=== PATIENT | female | born 1950 | race Caucasian/White ===

== ENCOUNTER 2017-08-19 17:01 | Emergency (ER) | payer MEDICARE, OTHER ==
[~2017-08-19] VITALS: Ht 170.2 cm; Wt 68.0 kg
== END 2017-08-19 18:35 | disposition home or self-care (01) ==
LOC: ER 17:01
DX: H53.9 Unspecified visual disturbance (principal); Z88.5 Allergy status to narcotic agent; Z87.891 Personal history of nicotine dependence
CPT/HCPCS: 99282

== ENCOUNTER → 2018-01-04 | Outpatient (CLI) | payer MEDICARE, OTHER ==
[2018-01-04 18:07] LABS: Source, Urine Clean Catch
[2018-01-04 18:56] LABS: Red Blood Cells, Urine Not Seen /hpf (0-2); White Blood Cells, Urine Rare /hpf (0-5)
[2018-01-04 18:57] LABS: Bacteria Not Seen /hpf; Squamous Epithelial Cells Few /hpf (Few); Transitional Epithelial Cells Few /hpf (0-Rare)
== END | disposition home or self-care (01) ==
LOC: LAB SHORT 12:15 → LAB EV 12:15
PROVIDERS: Internal Medicine
DX: R31.0 Gross hematuria (principal)
CPT/HCPCS: 81015

== ENCOUNTER → 2020-03-02 | Outpatient (CLI) | payer MEDICARE, OTHER ==
[~2020-03-02] MED LIST: ALPR.5; DULO30 PO
== END | disposition home or self-care (01) ==
LOC: LAB SHORT 11:54 → PLD 11:54
DX: D22.5 Melanocytic nevi of trunk (principal); D22.72 Melanocytic nevi of left lower limb, including hip
CPT/HCPCS: 88305

== ENCOUNTER → 2020-03-16 | Outpatient (CLI) | payer MEDICARE, OTHER | END | disposition home or self-care (01) | LOC: LAB SHORT 14:26 → PLD 14:26 | DX: L72.0 Epidermal cyst (principal) | CPT/HCPCS: 88304 ==

== ENCOUNTER 2020-03-20 11:55 | Day surgery (SDC) | payer MEDICARE, OTHER ==
[~2020-03-20] VITALS: Ht 170.2 cm; Wt 66.7 kg
== END 2020-03-20 13:53 | disposition home or self-care (01) ==
LOC: ORSCSDS 11:55
PROVIDERS: Internal Medicine Gastroenterology
PROC: 0DJD8ZZ Inspection of Lower Intestinal Tract, Via Natural or Artificial Opening Endoscopic (ICD-10-PCS; principal; 2020-03-20 13:15)
DX: Z12.11 Encounter for screening for malignant neoplasm of colon (principal); K57.30 Diverticulosis of large intestine without perforation or abscess without bleeding; K64.8 Other hemorrhoids
CPT/HCPCS: J2704; J7120

== ENCOUNTER → 2021-09-14 | Outpatient (CLI) | payer MEDICARE, OTHER ==
[2021-09-14 10:32] LABS: BASOPHILS ABSOLUTE AUTO 0.03 K/mm3 (0.00-0.23); BASOPHILS PERCENT AUTO 1 % (0-2); EOSINOPHILS PERCENT AUTO 0 % (0-6); Hematocrit 44.3 % (33.0-51.0); Hemoglobin 14.5 g/dL (11.5-16.0); IMMATURE GRAN ABSOLUTE AUTO 0.01 K/mm3 (0.00-0.10); IMMATURE GRAN PERCENT AUTO 0 % (0-1); LYMPHOCYTES ABSOLUTE AUTO 1.94 K/mm3 (0.84-5.20); LYMPHOCYTES PERCENT AUTO 40 % (21-46); MONOCYTES PERCENT AUTO 8 % (4-13); Mean Corpuscular HGB 30.2 pg (26.0-34.0); Mean Corpuscular HGB Conc 32.7 g/dL (31.5-36.5); Mean Corpuscular Volume 92 fL (80-100); Mean Platelet Volume 9.8 fL (9.1-12.4); NEUTROPHILS ABSOLUTE AUTO 2.44 K/mm3 (1.96-9.15); NEUTROPHILS PERCENT AUTO 51 % (41-73); Platelet Count 200 K/mm3 (150-400); RDW Coefficient Variation 12.4 % (11.7-14.2); RDW Standard Deviation 42.3 fL (35.1-46.3); White Blood Cell Count 4.82 K/mm3 (4.00-11.30)
[2021-09-14 11:07] LABS: Alanine Aminotransfer (ALT/SGP 47 U/L (12-78); Albumin/Globulin Ratio 1.4 (0.8-1.8); Alk Phos 84 U/L (50-136); Anion Gap 5 mmol/L (6-16); Aspartate Aminotrans (AST/SGOT 20 U/L (12-37); Bilirubin, Total 0.6 mg/dL (0.1-1.0); Blood Urea Nitrogen 29 mg/dL (8-24); CHOL/HDL RATIO 2.4; CO2, Blood 29 mmol/L (21-32); Calcium, Blood 8.7 mg/dL (8.5-10.1); Chloride, Blood 107 mmol/L (98-108); Cholesterol 134 mg/dL (50-200); Creatinine, Blood 0.78 mg/dL (0.40-1.00); Globulin, Blood 2.9 g/dL (2.2-4.0); Glomerular Filtration Rate 81 (60-); Glucose, Blood 105 mg/dL (70-99); HDL Cholesterol 57 mg/dL (>39); LDL/HDL RATIO 1.1; Low Density Lipoprotein Chol 64 mg/dL (0-110); Potassium, Blood 4.3 mmol/L (3.5-5.5); Sodium, Blood 141 mmol/L (136-145); Total Protein, Blood 6.9 g/dL (6.4-8.2); Triglycerides 63 mg/dL (30-160); Very Low Density Lipoprot Chol 13 mg/dL (6-32)
== END ==
LOC: LAB SHORT 09:30
PROVIDERS: Internal Medicine
DX: E78.2 Mixed hyperlipidemia (principal)
CPT/HCPCS: 80053; 80061; 85025

== ENCOUNTER 2024-03-13 21:27 | Emergency (ER) | payer MEDICARE ==
[~2024-03-13] VITALS: Ht 172.7 cm; Wt 68.0 kg
[~2024-03-13 21:27] MED LIST changes: +ALBU2.5V5 INH; +Acetaminophen650 M1 PO; +BENZ100A PO; +BREZTRI AEROS10.7 GM INH; +HYDHCL25 PO; +MELATONIN5 M1 PO; +ROBITUSSIN HON237 ML PO; +XARELTO15 MG PO; +XARELTO20 MG PO
[2024-03-13 21:53] VITALS: BP 145/71
[2024-03-14 00:12] LABS: BASOPHILS ABSOLUTE AUTO 0.02 K/mm3 (0.00-0.23); BASOPHILS PERCENT AUTO 0 % (0-2); EOSINOPHILS PERCENT AUTO 0 % (0-6); Hematocrit 29.6 % (33.0-51.0); Hemoglobin 9.5 g/dL (11.5-16.0); IMMATURE GRAN PERCENT AUTO 0 % (0-1); LYMPHOCYTES ABSOLUTE AUTO 1.12 K/mm3 (0.84-5.20); LYMPHOCYTES PERCENT AUTO 25 % (21-46); MONOCYTES ABSOLUTE AUTO 0.79 K/mm3 (0.16-1.47); MONOCYTES PERCENT AUTO 17 % (4-13); Mean Corpuscular HGB Conc 32.1 g/dL (31.5-36.5); Mean Corpuscular Volume 100 fL (80-100); Mean Platelet Volume 8.7 fL (9.1-12.4); NEUTROPHILS ABSOLUTE AUTO 2.64 K/mm3 (1.96-9.15); NEUTROPHILS PERCENT AUTO 58 % (41-73); Platelet Count 205 K/mm3 (150-400); RDW Coefficient Variation 14.2 % (11.7-14.2); RDW Standard Deviation 50.6 fL (35.1-46.3); Red Blood Cell Count 2.97 M/mm3 (3.80-5.20); White Blood Cell Count 4.57 K/mm3 (4.00-11.30)
[2024-03-14 00:30] LABS: Albumin, Blood 3.3 g/dL (3.4-5.0); Albumin/Globulin Ratio 0.9 (0.8-1.8); Bilirubin, Total 0.2 mg/dL (0.1-1.0); Bun/Creatinine Ratio 22.1 (12.0-20.0); Calcium, Blood 8.8 mg/dL (8.5-10.1); Creatinine, Blood 0.86 mg/dL (0.40-1.00); Globulin, Blood 3.8 g/dL (2.2-4.0); Potassium, Blood 3.8 mmol/L (3.5-5.5); Total Protein, Blood 7.1 g/dL (6.4-8.2)
[2024-03-14] MEDS ORDERED: Tobramycin 0.3% Opth Soln 5 ML BOTHEYES ONE (00:45)
[2024-03-14] MEDS ORDERED: Tobrex5 ML BOTHEYES (01:02)
[2024-03-14] MEDS ORDERED: Diflucan100 MG PO (01:02)
== END 2024-03-14 01:24 | disposition home or self-care (01) ==
LOC: ER 21:27
PROVIDERS: Emergency Medicine
DX: H10.9 Unspecified conjunctivitis (principal); Z79.899 Other long term (current) drug therapy; Z79.51 Long term (current) use of inhaled steroids; Z88.5 Allergy status to narcotic agent; Z88.8 Allergy status to other drugs, medicaments and biological substances
CPT/HCPCS: 80053; 85025; 99283; A9270

== ENCOUNTER 2024-06-25 12:02 | Emergency (ER) | payer MEDICARE ==
[~2024-06-25] VITALS: Ht 172.7 cm; Wt 68.0 kg
[~2024-06-25 12:02] MED LIST changes: +Diflucan100 MG PO; +Tobrex5 ML BOTHEYES
[2024-06-25 12:21] VITALS: BP 134/73
[2024-06-25 13:25] LABS: BASOPHILS ABSOLUTE AUTO 0.02 K/mm3 (0.00-0.23); BASOPHILS PERCENT AUTO 0 % (0-2); EOSINOPHILS ABSOLUTE AUTO 0.13 K/mm3 (0.00-0.68); EOSINOPHILS PERCENT AUTO 2 % (0-6); Hematocrit 31.4 % (33.0-51.0); Hemoglobin 9.9 g/dL (11.5-16.0); IMMATURE GRAN ABSOLUTE AUTO 0.02 K/mm3 (0.00-0.10); IMMATURE GRAN PERCENT AUTO 0 % (0-1); LYMPHOCYTES ABSOLUTE AUTO 1.11 K/mm3 (0.84-5.20); LYMPHOCYTES PERCENT AUTO 20 % (21-46); MONOCYTES PERCENT AUTO 9 % (4-13); Mean Corpuscular HGB 27.9 pg (26.0-34.0); Mean Corpuscular HGB Conc 31.5 g/dL (31.5-36.5); Mean Corpuscular Volume 89 fL (80-100); Mean Platelet Volume 8.3 fL (9.1-12.4); NEUTROPHILS ABSOLUTE AUTO 3.86 K/mm3 (1.96-9.15); NEUTROPHILS PERCENT AUTO 68 % (41-73); Platelet Count 317 K/mm3 (150-400); RDW Coefficient Variation 14.1 % (11.7-14.2); RDW Standard Deviation 45.8 fL (35.1-46.3); Red Blood Cell Count 3.55 M/mm3 (3.80-5.20); White Blood Cell Count 5.64 K/mm3 (4.00-11.30)
[2024-06-25 13:45] LABS: International Normalized Ratio 1.14; Prothrombin Time Results 12.1 Sec (9.7-11.5)
[2024-06-25 13:58] LABS: Albumin/Globulin Ratio 0.8 (0.8-1.8); Bilirubin, Total 0.4 mg/dL (0.1-1.0); Bun/Creatinine Ratio 16.4 (12.0-20.0); Calcium, Blood 8.2 mg/dL (8.5-10.1); Creatinine, Blood 0.79 mg/dL (0.40-1.00); Potassium, Blood 3.8 mmol/L (3.5-5.5)
== END 2024-06-25 12:58 | disposition home or self-care (01) ==
LOC: ER 12:02
PROVIDERS: Physician Assistant
DX: J90 Pleural effusion, not elsewhere classified (principal); Z88.5 Allergy status to narcotic agent; Z79.899 Other long term (current) drug therapy; Z79.2 Long term (current) use of antibiotics; Z79.01 Long term (current) use of anticoagulants; Z59.89 Other problems related to housing and economic circumstances
CPT/HCPCS: 36415; 80053; 85025; 85610; 85730; 99284

== ENCOUNTER 2024-07-05 09:06 | Day surgery (SDC) | payer MEDICARE ==
[2024-07-05] VITALS (12 sets, daily range): BP systolic 95–117; BP diastolic 49–79
[~2024-07-05] VITALS: Ht 172.7 cm; Wt 68.9 kg
[~2024-07-05 09:06] MED LIST changes: +ALPR.25; +ASCO500 PO; +Ativan1 MG; +B-12500 MC2 PO; +CALCIUM CIT 311 EAC7 PO; +DECADRON4 M1; +FERSU300 PO; +FLUC200 PO; +FOLI1 PO; +LEVO750 PO; +MULVITA PO; +NITR.4SL SL; +OLAN2.5 PO; +ONDA4ODT MM; +PYRI100 PO; +TAGRISSO40 MG PO; +VITAMIN D5000 UNIT PO; +ZINC15 PO; +[UNRECOGNIZED DRUG - OTHER] PO
[2024-07-05] MEDS ORDERED: Lactated Ringer's 1,000 ML IV SCH (09:10)
--- NOTE | 2024-07-05 09:25 | NUR ---
LUNGS CLEAR TO AUSCULTATION, POSTERIOR RIGHT LOWER BASE DIMINISHED. PATIENT REPORTS SOB WITH ANY ACTIVITY. NO VISIBLE RESPIRATORY DISTRESS.
[2024-07-05] MEDS ORDERED: CeFAZolin Sodium 2,000 MG in NS 100 ML IV SCH (09:55)
--- NOTE | 2024-07-05 10:07 | NUR ---
ALMA ROSA LYNN, FROM PALLIATIVE CARE, HERE AT BEDSIDE PROVIDING EDUCATION ON PLEURX CATHETER SUPPLIES.
[2024-07-05] MEDS ORDERED: CeFAZolin Sodium 2,000 MG VIAL ONE (10:12)
--- NOTE | 2024-07-05 10:45 | NUR ---
EDUCATED PT ON HOW TO USE PLEURX SYSTEM. PT WAS ABLE TO VERBALLY REPEAT BACK STEPS WELL. PT STATED SHE HAS VIEWED VIDEO PRIOR TO COMING IN TODAY. PT STATES HER SISTER IS A RN AND WILL BE ASSISTING HER WITH PROCEDURE AT HOME. PT SENT HOME WITH A PLEURX HOME SYSTEM. CHARGE SHEET PLACED IN CHART.
[2024-07-05] MEDS ORDERED: FentaNYL Citrate 50 MCG/ML 2 ML Injection ONE (11:13)
[2024-07-05] MEDS ORDERED: propofoL 20 ML IV ONE (11:13)
[2024-07-05] MEDS ORDERED: Dexamethasone Sod Phos 10 MG/ML 1ML VIAL ONE (11:17)
[2024-07-05] MEDS ORDERED: Ondansetron HCl 2 MG / ML 2ML Vial ONE (11:17)
[2024-07-05] MEDS ORDERED: Bupivacaine 0.5% HCl 5 MG/ML 30MLVIAL ONE (11:20)
--- NOTE | 2024-07-05 12:07 | NUR ---
07/05/24 1207 Sofiya Miranda 10ML OF 1% LIDOCAINE FROM PLEUR-X DRAIN KIT INJECTED INTO OPERATIVE SITE.
[2024-07-05] MEDS ORDERED: Albuterol 2.5 MG/3 ML VIAL ONE (12:21)
[2024-07-05] MEDS ORDERED: Acetaminophen 500 MG Tab PO ONE (13:30)
== END 2024-07-05 23:00 | disposition home or self-care (01) ==
LOC: ORSCMMR 09:06 → ORD 09:30 → ORSCMMR 10:30
PROVIDERS: Surgery
PROC: 0W993ZZ Drainage of Right Pleural Cavity, Percutaneous Approach (ICD-10-PCS; principal; 2024-07-05 10:30)
DX: C34.11 Malignant neoplasm of upper lobe, right bronchus or lung (principal); J91.0 Malignant pleural effusion; G47.33 Obstructive sleep apnea (adult) (pediatric); Z86.711 Personal history of pulmonary embolism; Z79.01 Long term (current) use of anticoagulants
CPT/HCPCS: 71045; A9270; C1729; J0690; J1100; J2405; J2704; J3010; J7120

== ENCOUNTER 2024-07-18 19:48 | Observation (INO) | payer MEDICARE ==
[~2024-07-18] VITALS: Ht 172.7 cm; Wt 66.7 kg
[~2024-07-18 19:48] MED LIST changes: -ZINC15 PO; +[UNRECOGNIZED DRUG - OTHER] PO
[2024-07-18 20:50] LABS: BASOPHILS ABSOLUTE AUTO 0.03 K/mm3 (0.00-0.23); BASOPHILS PERCENT AUTO 0 % (0-2); EOSINOPHILS PERCENT AUTO 0 % (0-6); Hematocrit 34.5 % (33.0-51.0); Hemoglobin 10.6 g/dL (11.5-16.0); IMMATURE GRAN ABSOLUTE AUTO 0.03 K/mm3 (0.00-0.10); IMMATURE GRAN PERCENT AUTO 0 % (0-1); LYMPHOCYTES ABSOLUTE AUTO 1.43 K/mm3 (0.84-5.20); LYMPHOCYTES PERCENT AUTO 14 % (21-46); MONOCYTES ABSOLUTE AUTO 0.75 K/mm3 (0.16-1.47); MONOCYTES PERCENT AUTO 7 % (4-13); Mean Corpuscular HGB 26.1 pg (26.0-34.0); Mean Corpuscular HGB Conc 30.7 g/dL (31.5-36.5); Mean Corpuscular Volume 85 fL (80-100); NEUTROPHILS ABSOLUTE AUTO 7.95 K/mm3 (1.96-9.15); NEUTROPHILS PERCENT AUTO 78 % (41-73); Platelet Count 438 K/mm3 (150-400); RDW Coefficient Variation 15.3 % (11.7-14.2); RDW Standard Deviation 47.3 fL (35.1-46.3); Red Blood Cell Count 4.06 M/mm3 (3.80-5.20); White Blood Cell Count 10.19 K/mm3 (4.00-11.30)
[2024-07-18] MEDS ORDERED: Morphine Sulfate 4 MG/1 ML Injection IV ONE (20:55)
[2024-07-18 21:02] LABS: Albumin, Blood 2.4 g/dL (3.4-5.0); Albumin/Globulin Ratio 0.5 (0.8-1.8); Bilirubin, Total 0.4 mg/dL (0.1-1.0); Bun/Creatinine Ratio 26.3 (12.0-20.0); Calcium, Blood 8.2 mg/dL (8.5-10.1); Creatinine, Blood 0.8 mg/dL (0.40-1.00); Globulin, Blood 4.6 g/dL (2.2-4.0); Potassium, Blood 4.6 mmol/L (3.5-5.5)
[2024-07-18 21:27] LABS: International Normalized Ratio 1.23
[2024-07-19] MEDS ORDERED: Morphine Sulfate 4 MG/1 ML Injection IV ONE (00:25)
[2024-07-19] MEDS ORDERED: NS 1,000 ML IV SCH (01:35)
[2024-07-19] MEDS ORDERED: Ondansetron HCl 2 MG / ML 2ML Vial IV PRN (01:35)
[2024-07-19] MEDS ORDERED: Atorvastatin 40 MG Tab PO SCH (02:00)
[2024-07-19] MEDS ORDERED: Aspirin 81 MG Chew PO SCH (02:00)
[2024-07-19 02:36] VITALS: BP 117/59
[2024-07-19 03:28] LABS: BASOPHILS ABSOLUTE AUTO 0.02 K/mm3 (0.00-0.23); BASOPHILS PERCENT AUTO 0 % (0-2); EOSINOPHILS PERCENT AUTO 0 % (0-6); Hematocrit 26.7 % (33.0-51.0); Hemoglobin 8.2 g/dL (11.5-16.0); IMMATURE GRAN ABSOLUTE AUTO 0.04 K/mm3 (0.00-0.10); IMMATURE GRAN PERCENT AUTO 1 % (0-1); LYMPHOCYTES ABSOLUTE AUTO 1.27 K/mm3 (0.84-5.20); LYMPHOCYTES PERCENT AUTO 15 % (21-46); MONOCYTES ABSOLUTE AUTO 0.81 K/mm3 (0.16-1.47); MONOCYTES PERCENT AUTO 9 % (4-13); Mean Corpuscular HGB 26.1 pg (26.0-34.0); Mean Corpuscular HGB Conc 30.7 g/dL (31.5-36.5); Mean Corpuscular Volume 85 fL (80-100); Mean Platelet Volume 8.2 fL (9.1-12.4); NEUTROPHILS ABSOLUTE AUTO 6.55 K/mm3 (1.96-9.15); NEUTROPHILS PERCENT AUTO 75 % (41-73); Platelet Count 314 K/mm3 (150-400); RDW Coefficient Variation 15.3 % (11.7-14.2); RDW Standard Deviation 46.8 fL (35.1-46.3); Red Blood Cell Count 3.14 M/mm3 (3.80-5.20); White Blood Cell Count 8.69 K/mm3 (4.00-11.30)
[2024-07-19 03:48] LABS: Albumin, Blood 1.9 g/dL (3.4-5.0); Albumin/Globulin Ratio 0.5 (0.8-1.8); Bilirubin, Total 0.2 mg/dL (0.1-1.0); Bun/Creatinine Ratio 24.4 (12.0-20.0); Calcium, Blood 7.2 mg/dL (8.5-10.1); Creatinine, Blood 0.74 mg/dL (0.40-1.00); Globulin, Blood 3.5 g/dL (2.2-4.0); Total Protein, Blood 5.4 g/dL (6.4-8.2)
[2024-07-19 05:06] LABS: Source, Urine Clean Catch
[2024-07-19 05:11] LABS: Bilirubin, Urine Neg (Neg); Blood, Urine 1+ (Neg); Glucose Qualitative, Urine Neg (Neg); Ketones, Urine Neg (Neg); Leukocyte Esterase, Urine 2+ (Neg); Nitrite, Urine Neg (Neg); Protein, Urine 1+ (Neg); Urobilinogen, Urine NORM (Normal)
[2024-07-19 05:20] LABS: Appearance, Urine Clear (Clear); Color, Urine Yellow (P-Yellow)
[2024-07-19 05:29] LABS: U Amphetamine Screen Not Detected; U Barbituate Screen Not Detected; U Benzodiazapine Screen Not Detected; U Buprenorphine Screen Not Detected; U Cannabinoids Screen Not Detected; U Cocaine Screen Not Detected; U Methadone Screen Not Detected; U Methamphetamine Screen Not Detected; U Opiates Screen DETECTED; U Oxycodone Screen Not Detected; U Phencyclidine Screen Not Detected
[2024-07-19 05:30] LABS: Bacteria Mod /hpf; Red Blood Cells, Urine 0-2 /hpf (0-2); Squamous Epithelial Cells Mod /hpf (Few)
[2024-07-19] MEDS ORDERED: FentaNYL Citrate 50 MCG/ML 2 ML Injection IV PRN (06:05)
[2024-07-19 07:38] VITALS: BP 119/61
[2024-07-19] MEDS ORDERED: Cyanocobalamin 500 MCG Tab PO SCH (09:00)
[2024-07-19] MEDS ORDERED: ZINC SULFATE PO SCH (09:00)
[2024-07-19] MEDS ORDERED: Rivaroxaban 10 MG Tab PO SCH (09:00)
[2024-07-19] MEDS ORDERED: Docosahexanoic Acid/EPA 1,000 MG CAP PO SCH (09:00)
[2024-07-19] MEDS ORDERED: Calcium Citrate 315 MG/Vitamin D 250 IU Tab PO SCH (09:00)
[2024-07-19] MEDS ORDERED: Ferrous Gluconate 325 MG Tablet PO SCH (09:00)
[2024-07-19] MEDS ORDERED: Cholecalciferol 1000 Unit Tablet (=25MCG) PO SCH (09:00)
[2024-07-19] MEDS ORDERED: Multivitamins 1 Tab PO SCH (09:00)
[2024-07-19] MEDS ORDERED: OSIMERTINIB PO SCH (09:00)
[2024-07-19] MEDS ORDERED: PyridOXINE HCL 50 MG TAB PO SCH (09:00)
[2024-07-19 12:20] VITALS: BP 112/63
[2024-07-19] MEDS ORDERED: Amoxicillin/Clavulanate K 500 MG Tab PO ONE (13:00)
[2024-07-19] MEDS ORDERED: ASPI81CH PO (13:29)
[2024-07-19] MEDS ORDERED: AMOCLA500 PO (13:30)
[2024-07-19] MEDS ORDERED: ATOR40TA PO (13:30)
--- NOTE | 2024-07-19 14:48 | NUR ---
DISCHARGE NOTE PATIENT A/OX4, ABLE TO MAKE NEEDS KNOWN. PLEASANT AND COOPERATIVE WITH CARE. STAND BY ASSIST WITH AMBULATION. DENIED NEED FOR PAIN MEDICATIONS THIS SHIFT. HOME OXYGEN STUDY COMPLETED BY RESPIRATOPRY THERAPY, NO OXYGEN NEEDS. PATIENT CONINTUES WITH DYSPNEA WITH EXERTION AND PAINFUL DRY COUGH. IV DRESSING CHANGED THIS AM, IV REMOVED PRIOR TO DISCHARGE. FOLLOW UP APPOINTMENTS AND NEW MEDICATIONS DISCUSSED WITH PATIENT PRIOR TO DISCHARGE AND FAXED TO [facility] ON [address]. PATIENT AND SISTER AT BEDSIDE DURING EDUCATION AND BOTH AGREEABLE TO PLAN. TELEMETRY REMOVED PRIOR TO DISCHARGE. NO OTHER CONCERNS AT THIS TIME. PATIENT ASSISTED TO SISTER'S VEHICLE VIA WHEELCHAIR.
[2024-07-19] MEDS ORDERED: DULoxetine HCL 30 MG Cap DR PO SCH (21:00)
== END 2024-07-19 14:20 | disposition home or self-care (01) ==
LOC: ER 19:48 → MEDS 19:49 → ERHOLD 19:49 → MEDS 07-19 02:20
PROVIDERS: Student in an Organized Health Care Education/Training Program; ADMIT Internal Medicine
DX: G45.9 Transient cerebral ischemic attack, unspecified (principal); L03.313 Cellulitis of chest wall; C34.90 Malignant neoplasm of unspecified part of unspecified bronchus or lung; J90 Pleural effusion, not elsewhere classified; Z88.5 Allergy status to narcotic agent; Z88.8 Allergy status to other drugs, medicaments and biological substances; Z79.899 Other long term (current) drug therapy
CPT/HCPCS: 36415; 70450; 70496; 71046; 80053; 81001; 83880; 85025; 85610; 85730; 87086; 93005; 93010; 93880; 94761; 96374; 96375; 99285-25; A9270; G0378; J2270; J3010; J7030; Q9967

== ENCOUNTER 2024-07-23 18:11 | Inpatient (IN) | payer MEDICARE ==
[~2024-07-23] VITALS: Ht 167.6 cm; Wt 71.1 kg
[~2024-07-23 18:11] MED LIST changes: +AMOCLA500 PO; +ASPI81CH PO; +ATOR40TA PO
[2024-07-23 18:52] LABS: BASOPHILS ABSOLUTE AUTO 0.02 K/mm3 (0.00-0.23); BASOPHILS PERCENT AUTO 0 % (0-2); EOSINOPHILS PERCENT AUTO 0 % (0-6); Hematocrit 28.3 % (33.0-51.0); Hemoglobin 8.6 g/dL (11.5-16.0); IMMATURE GRAN ABSOLUTE AUTO 0.04 K/mm3 (0.00-0.10); IMMATURE GRAN PERCENT AUTO 1 % (0-1); LYMPHOCYTES ABSOLUTE AUTO 1.26 K/mm3 (0.84-5.20); LYMPHOCYTES PERCENT AUTO 15 % (21-46); MONOCYTES ABSOLUTE AUTO 1.13 K/mm3 (0.16-1.47); MONOCYTES PERCENT AUTO 14 % (4-13); Mean Corpuscular HGB 25.2 pg (26.0-34.0); Mean Corpuscular HGB Conc 30.4 g/dL (31.5-36.5); Mean Corpuscular Volume 83 fL (80-100); Mean Platelet Volume 8.3 fL (9.1-12.4); NEUTROPHILS ABSOLUTE AUTO 5.91 K/mm3 (1.96-9.15); NEUTROPHILS PERCENT AUTO 71 % (41-73); Platelet Count 478 K/mm3 (150-400); RDW Coefficient Variation 15.1 % (11.7-14.2); RDW Standard Deviation 45.9 fL (35.1-46.3); Red Blood Cell Count 3.41 M/mm3 (3.80-5.20); White Blood Cell Count 8.36 K/mm3 (4.00-11.30)
[2024-07-23 19:17] LABS: Albumin, Blood 1.8 g/dL (3.4-5.0); Albumin/Globulin Ratio 0.4 (0.8-1.8); Bilirubin, Total 0.3 mg/dL (0.1-1.0); Bun/Creatinine Ratio 23.7 (12.0-20.0); Creatinine, Blood 0.68 mg/dL (0.40-1.00); Globulin, Blood 4.3 g/dL (2.2-4.0); Total Protein, Blood 6.1 g/dL (6.4-8.2)
[2024-07-23] MEDS ORDERED: Adenosine 3 MG/ML 2 ML Vial IV ONE (19:25)
[2024-07-23] MEDS ORDERED: Adenosine 3 MG/ML 2 ML Vial ONE (19:39)
[2024-07-23] MEDS ORDERED: BENZONATATE100 MG PO (20:18)
[2024-07-23] MEDS ORDERED: Adenosine 3 MG/ML 4ML Vial IV ONE (20:40)
[2024-07-23] MEDS ORDERED: Diltiazem HCl 5 MG / ML 5ML Vial IV ONE (20:55)
[2024-07-23 21:29] LABS: Magnesium, Blood 2.3 mg/dL (1.6-2.4)
[2024-07-23] MEDS ORDERED: NS 1,000 ML IV SCH (23:10)
[2024-07-23] MEDS ORDERED: Diltiazem HCl 5 MG / ML 10ML Vial IV PRN (23:20)
[2024-07-24] MEDS ORDERED: Piperacillin/Tazobactam Sod 4.5 GM in NS 100 ML IV SCH (00:09)
[2024-07-24] MEDS ORDERED: Albumin (Human) 25gm/100ml 100 ML IV ONE (00:15)
[2024-07-24] MEDS ORDERED: FentaNYL Citrate 50 MCG/ML 2 ML Injection IV PRN (01:15)
[2024-07-24] MEDS ORDERED: ALPRAZolam 0.25 MG Tab PO ONE ×2 (01:15→12:00)
[2024-07-24] MEDS ORDERED: Benzonatate 100 MG Cap PO SCH (01:45)
[2024-07-24] MEDS ORDERED: Morphine Sulfate 4 MG/1 ML Injection IV PRN (01:45)
[2024-07-24 04:19] LABS: BASOPHILS ABSOLUTE AUTO 0.05 K/mm3 (0.00-0.23); BASOPHILS PERCENT AUTO 1 % (0-2); EOSINOPHILS ABSOLUTE AUTO 0.03 K/mm3 (0.00-0.68); EOSINOPHILS PERCENT AUTO 0 % (0-6); Hematocrit 26.1 % (33.0-51.0); Hemoglobin 8.1 g/dL (11.5-16.0); IMMATURE GRAN ABSOLUTE AUTO 0.03 K/mm3 (0.00-0.10); IMMATURE GRAN PERCENT AUTO 0 % (0-1); LYMPHOCYTES ABSOLUTE AUTO 1.27 K/mm3 (0.84-5.20); LYMPHOCYTES PERCENT AUTO 17 % (21-46); MONOCYTES ABSOLUTE AUTO 0.98 K/mm3 (0.16-1.47); MONOCYTES PERCENT AUTO 13 % (4-13); Mean Corpuscular HGB 25.4 pg (26.0-34.0); Mean Corpuscular Volume 82 fL (80-100); Mean Platelet Volume 8.2 fL (9.1-12.4); NEUTROPHILS ABSOLUTE AUTO 5.31 K/mm3 (1.96-9.15); NEUTROPHILS PERCENT AUTO 69 % (41-73); Platelet Count 439 K/mm3 (150-400); RDW Standard Deviation 44.9 fL (35.1-46.3); Red Blood Cell Count 3.19 M/mm3 (3.80-5.20); White Blood Cell Count 7.67 K/mm3 (4.00-11.30)
[2024-07-24 04:46] LABS: Albumin, Blood 1.5 g/dL (3.4-5.0); Albumin/Globulin Ratio 0.4 (0.8-1.8); Bilirubin, Total 0.3 mg/dL (0.1-1.0); Bun/Creatinine Ratio 21.8 (12.0-20.0); Calcium, Blood 7.1 mg/dL (8.5-10.1); Creatinine, Blood 0.6 mg/dL (0.40-1.00); Globulin, Blood 3.9 g/dL (2.2-4.0); Magnesium, Blood 2.3 mg/dL (1.6-2.4); Potassium, Blood 4.2 mmol/L (3.5-5.5); Thyroid Stimulating Hormone 2.39 uIU/mL (0.360-4.800); Total Protein, Blood 5.4 g/dL (6.4-8.2)
[2024-07-24] MEDS ORDERED: Rivaroxaban 10 MG Tab PO SCH (09:00)
[2024-07-24] MEDS ORDERED: ALPRAZolam 0.25 MG Tab PO PRN (12:00)
[2024-07-24] MEDS ORDERED: Morphine Sulfate 20 MG/1ML 1 ML Oral Syringe PO PRN (12:25)
[2024-07-24] MEDS ORDERED: TAGRISSO PO SCH (12:30)
[2024-07-24] MEDS ORDERED: Chlorpheniramine/Hydroc Polistir 5 ML UDC PO PRN (13:00)
[2024-07-24 13:46] VITALS: BP 111/62
[2024-07-24] MEDS ORDERED: DOC250 PO (16:43)
[2024-07-24] MEDS ORDERED: MORP20L BC (16:45)
[2024-07-24] MEDS ORDERED: NITR.4SL SL (16:46)
[2024-07-24 16:52] VITALS: BP 116/51
--- NOTE | 2024-07-24 19:24 | NUR ---
SHIFT SUMMARY: PT A&OX4. FOLLOWS COMMANDS AND MAKES NEEDS KNOWN STAFF. NO SIGNIFICANT EVENTS HAPPENED SINCE ARRIVAL TO THIS UNIT. PT WAS ABLE TO GET UP AND WALK TO THE BATHROOM AND AROUND THE ROOM WITHOUT ANY COMPLAINTS OR INCREASE IN HR. REPORT TO AREA OPERATIONS MANAGER TO ASSUME CARE OF PT.
[2024-07-24 19:46] VITALS: BP 120/58
[2024-07-24] MEDS ORDERED: DULoxetine HCL 30 MG Cap DR PO SCH (21:00)
[2024-07-24 23:23] VITALS: BP 139/64
[2024-07-25 04:38] VITALS: BP 137/60
--- NOTE | 2024-07-25 04:44 | NUR ---
SHIFT SUMMARY: PT A/OX4, BUT VERY SLEEPY T/O SHIFT. EASILY AROUSABLE. VERY ANXIOUS. MEDICATING PER EMAR FOR ANXIETY AND SOB/AIR HUNGER, ON 3L NC FOR COMFORT, SATS ABOVE 95%. SINUS TACH IN 100'S. PT ON BEDREST AT THIS TIME. PUREWICK IN PLACE AND DRAINING TO SUCTION.
[2024-07-25 08:10] VITALS: BP 135/67
[2024-07-25] MEDS ORDERED: Atorvastatin 40 MG Tab PO SCH (09:00)
[2024-07-25] MEDS ORDERED: Aspirin 81 MG Chew PO SCH (09:00)
[2024-07-25] MEDS ORDERED: Metoprolol Tartrate 25 MG Tab PO SCH (09:00)
[2024-07-25 10:48] VITALS: BP 119/57
[2024-07-25 12:01] VITALS: BP 118/58
--- NOTE | 2024-07-25 12:49 | NUR ---
pt is alert, oriented, and appropriate in conversation; however, she is a little muddled/mildly confused at times, but it is barely perceptible when it happens. She has been eating fairly well, supplemented with foods from her family which appeal to her more than the hospital trays. Standing weight today was 150 pounds, which pt stated is 5 pounds less than her usual weight. She said that she was glad but she has not been trying to lose weight. Dyspnea noted with activity, and she was fatigued after a short session with PT this morning. States that the doctor told her no drainage using Pleurx drain today; will probably need it tomorrow. Lung sounds are noted diminished on the right side, but auscultated throughout, with crackles scattered throughout, no wheezing appreciated. She is using oxygen for "air hunger" and "comfort". She does not use oxygen at home, but does have a CPAP. Son to bring in the machine from home today. Purewick was discontinued as she had voided but it was not well placed and she was sitting unawares in a large amount of urine this morning. Also would like to encourage OOB for toileting for general skin protection, maintaining mobility and strength as much as possible. Pt was in agreement with this plan. Asked pt to call for staff assist when needs to get OOB and she verbalized understanding.
--- NOTE | 2024-07-25 14:21 | NUR ---
Pt was connected to the Pleurx drain and 600cc red cloudy fluid was slowly evacuated. The pt tolerated it very well, without dyspnea, pain, anxiety nor coughing. Her vital signs were stable throughout and she was pleasantly conversant and cheerful.
[2024-07-25 16:10] VITALS: BP 109/53
[2024-07-25 20:26] VITALS: BP 122/67
[2024-07-26] VITALS (7 sets, daily range): BP systolic 106–131; BP diastolic 51–63
--- NOTE | 2024-07-26 04:34 | NUR ---
SHIFT SUMMARY PT A/OX4, PLEASANT, COOPERATIVE WITH CARE, VERBALIZES NEEDS. PT DISCUSSED WORRYING ABOUT HOW LONG SHE HAS TO LIVE CONSIDERING HER CURRENT DIAGNOSIS AND STATE OF HER HEALTH. SHE STATES SHE IS NOT AFRAID OF DYING AND FEELS AT PEACE. SHE REFLECTED ON THE LIFE SHE HAS LIVED AND EXPRESSED GRATITUDE. IN A SINUS RHYTHM WITH HR 90 S-100 S AT TIMES. BP STABLE. RADIAL AND PEDAL PULSES PALPABLE. PT DENIES CHEST PAIN/PRESSURE ON 3L NC, SATS ABOVE 95%. HOME 02 EVAL TO COMPLETED IN AM. O2 MOSTLY FOR COMFORT. PT HAS OCCASIONAL COUGH, TREATING PER EMAR. AMBULATING WITH FWW AND SBA, BUT CAPABLE OF AMBULATING INDEPENDENTLY. REPOSITIONING INDEPENDENTLY IN THE BED. USING BATHROOM NEEDED. PLEUREX DRAIN IN PLACE, DRESSING C/D/I. INCISION LATERAL RIGHT BREAST DISPLAYING SOME REDNESS.
[2024-07-26 09:14] LABS: BASOPHILS ABSOLUTE AUTO 0.02 K/mm3 (0.00-0.23); BASOPHILS PERCENT AUTO 0 % (0-2); EOSINOPHILS PERCENT AUTO 0 % (0-6); Hemoglobin 8.7 g/dL (11.5-16.0); IMMATURE GRAN ABSOLUTE AUTO 0.03 K/mm3 (0.00-0.10); IMMATURE GRAN PERCENT AUTO 0 % (0-1); LYMPHOCYTES ABSOLUTE AUTO 0.73 K/mm3 (0.84-5.20); LYMPHOCYTES PERCENT AUTO 9 % (21-46); MONOCYTES ABSOLUTE AUTO 0.54 K/mm3 (0.16-1.47); MONOCYTES PERCENT AUTO 7 % (4-13); Mean Corpuscular HGB 24.6 pg (26.0-34.0); Mean Corpuscular Volume 85 fL (80-100); Mean Platelet Volume 9.3 fL (9.1-12.4); NEUTROPHILS ABSOLUTE AUTO 7.01 K/mm3 (1.96-9.15); NEUTROPHILS PERCENT AUTO 84 % (41-73); Platelet Count 478 K/mm3 (150-400); RDW Coefficient Variation 14.8 % (11.7-14.2); RDW Standard Deviation 45.8 fL (35.1-46.3); Red Blood Cell Count 3.54 M/mm3 (3.80-5.20); White Blood Cell Count 8.33 K/mm3 (4.00-11.30)
[2024-07-26] MEDS ORDERED: Fluconazole 100 MG Tab PO ONE (09:30)
--- NOTE | 2024-07-26 09:31 | NUR ---
Dr. Baxter here to round on the patient.
[2024-07-26 09:36] LABS: Calcium, Blood 7.7 mg/dL (8.5-10.1); Creatinine, Blood 0.45 mg/dL (0.40-1.00); Potassium, Blood 4.4 mmol/L (3.5-5.5)
--- NOTE | 2024-07-26 12:17 | NUR ---
Pt assisted up to [facility] to void. Back in bed, pt states she is ready for Pleurx drainage to be done. Pt was settled comfortably in the supine position and lung sounds auscultated. Diminished on the right lower lobe. Pt has no dyspnea. Spo2 continuous monitoring in progress. O2 at 2 l/min delivery, unchanged from this am. Vital signs are stable. Drain attached using sterile technique and over 15 minutes 200 cc slowly evacuated, fluid was reddish yellow, cloudy. pt tolerated the procedure very well. Minimal coughing noted afterwards. She has no c/o discomfort/pain.
--- NOTE | 2024-07-26 18:07 | NUR ---
Spiritual Care Visit. Pt. is awake in bed and welcomes my visit. Pt. is pleasant, and son is at bedside. Facilitate a life review and in the course of the life story some common communnity relationships were identified. Pt. verbalized that she had recently had a spiritual awakening and that she felt more at peace than any time she can remember. Listened with interest and pastoral care. Pt. also verbalized about her cancer treatments. Pt. displayed evidence of being fully engaged and aware. Prayed with the Pt. Pt. and son both verbalized gratitude for the spiritual care visit.
--- NOTE | 2024-07-26 18:22 | NUR ---
Pt's son Patrick expressed concern about pt's ongoing "foggy" mentatation. There are no focal deficits and the pt is alert and oriented, but son states she is rambling in her conversation, very unlike herself, and also having some visual hallucinations, although the pt is aware that they are distortions. The pt is alert, oriented, appropriate in conversation, although she does describe her thinking as "foggy" and "forgetful". She is not anxious. Her vital signs are stable. She is on 1 l/min of oxygen at rest. Call to Dr. Baxter to express the son's concerns and ask if any interventions are needed. Doctor said that given pt's improvement over the past 3 days, reassuring CT scan on July 18, no focal deficits and no changes since she saw the patient this morning, it is likely ongoing resolution of the infectious process and we should give it more time to see if it will clear. The pt expresses she wishes to remain a full code.
--- NOTE | 2024-07-26 19:11 | NUR ---
PALLIATIVE CARE VISIT: MET WITH PT IN HER ROOM. PT IS EASILY AROUSED. SHE IS ABLE TO HAVE MEANINGFUL DISCUSSION BUT IS VERY DROWSY. DISCUSS GOALS OF CARE, AD/POLST WITH PT. PT STATES SHE RECENTLY COMPLETED AN ADVANCE DIRECTIVE BUT IT IS AT HOME. PT IS WORKING ON GETTING AFFAIRS COMPLETED. PT WISHES TO BE A FULL CODE AT THIS TIME. DISCUSSED RISKES ASSOCIATED WITH CPR/VENTILATOR AND PT CONTINUES TO WISH TO BE A FULL CODE. GOALS OF CARE: PT STATES SHE IS WANTING TO CONTINUE CHEMO/RADIATION TREATMENT. TREATMENT WAS GOING VERY WELL UNTIL SHE DECIDED TO PRUNE SOME TREES ON HER PROPERTY A FEW WEEKS AGO AND THEN SHE DEVELOPED A PERSISTANT COUGH THAT WOULD NOT GO AWAY. SHE STATES HER ONLY SYMPTOM IS FEELING TIRED ALL THE TIME. PT STATES SHE WAS MANAGING PLEURX AT HOME BUT HER SYMPTOMS DID WORSEN AFTER PLEURX WAS PLACED. PT STATES HER SON IS AT HOME WITH HER . HER SISTER IS ARRIVING SOMETIME TODAY TO ALSO HELP. GOT PERMISSION TO CALL SON KATELYNN AND DISCUSS BRINGING IN ADVANCE DIRECTIVE AND DISCUSS RN MED SURG CARE NEEDS. KAILEY WAS AGREEABLE TO CALL. PT SEEMED TO BE TIRING EASILY AND FALLING ASLEEP SO ENDED VISIT. CALLED KATELYNN ON [facility]ED AND LEFT A MESSAGE. NO RETURN CALL.
[2024-07-27] VITALS (7 sets, daily range): BP systolic 117–148; BP diastolic 53–74
--- NOTE | 2024-07-27 04:23 | NUR ---
PLEASANT, PRN MEDICATION ADMIN FOR COUGH, O2 VIA NC IN PLACE OVERNIGHT ADEQUATE O2 SATS, SON VISITED, WILL BE BACK IN AM, PLEASANT, IV ABX ADMIN PER MD ORDER, CALM AND COOPERATIVE A&OX4 RRR AND UNLABORED VSS.
[2024-07-27] MEDS ORDERED: NS 250 ML IV PRN (08:20)
--- NOTE | 2024-07-27 10:12 | NUR ---
MD CALLED FOR CONCERN ABOUT HOW DROWSY PT IS THIS AM. PT ABLE TO ANSWER QUESTIONS APPROPRIATELY BUT FALLS ASLEEP AFTER EACH 1 WORD ANSWER, UNABLE TO CARRY ON WITH A THOUGHT.
[2024-07-27 10:36] LABS: BASOPHILS ABSOLUTE AUTO 0.02 K/mm3 (0.00-0.23); BASOPHILS PERCENT AUTO 0 % (0-2); EOSINOPHILS PERCENT AUTO 0 % (0-6); Hematocrit 26.8 % (33.0-51.0); Hemoglobin 7.9 g/dL (11.5-16.0); IMMATURE GRAN ABSOLUTE AUTO 0.06 K/mm3 (0.00-0.10); IMMATURE GRAN PERCENT AUTO 1 % (0-1); LYMPHOCYTES ABSOLUTE AUTO 0.59 K/mm3 (0.84-5.20); LYMPHOCYTES PERCENT AUTO 6 % (21-46); MONOCYTES ABSOLUTE AUTO 0.81 K/mm3 (0.16-1.47); MONOCYTES PERCENT AUTO 9 % (4-13); Mean Corpuscular HGB 24.8 pg (26.0-34.0); Mean Corpuscular HGB Conc 29.5 g/dL (31.5-36.5); Mean Corpuscular Volume 84 fL (80-100); Mean Platelet Volume 7.9 fL (9.1-12.4); NEUTROPHILS ABSOLUTE AUTO 7.87 K/mm3 (1.96-9.15); NEUTROPHILS PERCENT AUTO 84 % (41-73); Platelet Count 520 K/mm3 (150-400); RDW Coefficient Variation 14.6 % (11.7-14.2); RDW Standard Deviation 45.3 fL (35.1-46.3); Red Blood Cell Count 3.18 M/mm3 (3.80-5.20); White Blood Cell Count 9.35 K/mm3 (4.00-11.30)
[2024-07-27 10:52] LABS: PCO2 Arterial 58.3 mmHg (35-45); PO2 Arterial 82.9 mmHg (80-100); pH Blood Arterial 7.38 (7.35-7.45)
[2024-07-27 10:58] LABS: Albumin/Globulin Ratio 0.5 (0.8-1.8); Bilirubin, Total 0.2 mg/dL (0.1-1.0); Bun/Creatinine Ratio 26.1 (12.0-20.0); Calcium, Blood 8.2 mg/dL (8.5-10.1); Creatinine, Blood 0.46 mg/dL (0.40-1.00); Potassium, Blood 4.3 mmol/L (3.5-5.5)
--- NOTE | 2024-07-27 16:56 | NUR ---
SHIFT NOTE: PT WAS VERY DROWSY THIS AM AND WOULD ONLY WAKE TO GIVE ONE WORD ANSWERS. MD WAS NOTIFIED (SEE PREVIOUS NOTE) AND THE SON WAS UPDATED. SON STATED THIS IS HOW SHE HAS BEEN EVERY MORNING AND THAT SHE CLEARS IN THE AFTERNOON. THIS AFTERNOON SHE HAS BEEN MORE ALERT, ABLE TO HAVE CONVERSATIONS WITH THIS RN AND AMBULATE TO THE CHAIR AND THE BATHROOM. HOWEVER PT CONTINUES TO REPORT EXTREME FATIGUE AND FALLS ASLEEP FREQUENTLY. SHE WAS ON 2L THIS AM AND TITRTATED TO RA AROUND NOON. SHE HAS REMAINED ON RA WITH SPO2>90%. SON HAS BEEN EDUCATED ON NEED FOR OXYGEN SUPPLEMENTATION ONLY WHEN NECESSARY. HE REPORTS HE WOULD FEEL BETTER IF WE LEFT HER ON O2 AND HE STRONGLY STATES HE WANTS A PRESCRIPTION FOR O2 UPON DISCHARGE. PT ALSO EDUCATED ON NEED TO CONTINUE USE OF HOME CPAP. PT STATES SHE WILL TRY TO WEAR IT WHILE SLEEPING. THE PATIENT IS ON TELE IN SINUS WITH RATES CONTROLLED <90BPM. PT SON STATES GREAT CONCERN WITH PT TAKING METOPROLOL BECAUSE HE THINKS IT IS CAUSING HER DROWSINESS. CONCERN DISCUSSED WITH RN AND MD. PT EDUCATED ON NEED TO CONTROL HR DUE TO HER RECENT SVT. PT IS ABLE TO MAKE HER NEEDS KNOWN AND ONLY REQUIRES 1P ASSIST TO THE BATHROOM FOR ADLS. IV ABX INFUSING PER EMAR. CARE CONTINUES
[2024-07-28 04:55] LABS: Hematocrit 27.1 % (33.0-51.0); Hemoglobin 8.2 g/dL (11.5-16.0); Mean Corpuscular HGB 25.3 pg (26.0-34.0); Mean Corpuscular HGB Conc 30.3 g/dL (31.5-36.5); Mean Corpuscular Volume 84 fL (80-100); Mean Platelet Volume 8.2 fL (9.1-12.4); Platelet Count 577 K/mm3 (150-400); RDW Coefficient Variation 14.6 % (11.7-14.2); RDW Standard Deviation 45.1 fL (35.1-46.3); Red Blood Cell Count 3.24 M/mm3 (3.80-5.20)
--- NOTE | 2024-07-28 05:11 | NUR ---
PT NON-COMPLIANT WITH RESPIRATORY ORDERS AND CARE, WEARING 2L O2 VIA NC OVERNIGHT, DID NOT WEAR BIPAP/CPAP SET UP. SISTER GINA) AT BEDSIDE FOR SEVERAL HOURS DURING SHIFT, PRN XANAX (O.25 MG PO - REFER TO JUN) ADMINISTERED TO PT TO HELP MANAGE "CLAUSTROPHOBIA" PT EXPERIENCING WHILE WEARING MASK, BUT NOT EFFECTIVE. MENTAL STATUS INTACT, PT NOT GROGGY/UNRESPONSIVE, ALERT AND ORIENTED X4, CONVERSES APPROPRIATELY. PO METOPROLOL ADMINISTERED, SISTER (VISHAL) EXPRESSED SOME CONCERNS REGARDING METOPROLOL IT HAS AFFECTED PT'S MOTHER AND PT'S NIECE PER SISTER MADE THEM "GROGGY AND NOT WANT TO GET UP." EDUCATION PROVIDED ON MEDICATION, PT AGREES AND VERALIZES UNDERSTANDING, HR AND BP STABLE, OTHER VSS. MULTIPLE TIMES ATTEMPTED TO REAPPLY MASK, ALONG WITH MULTIPLE TIMES BY RT BUT PT REFUSED. PT'S WISHES RESPECTED, EDUCATED ON IMPORTANCE/REASONING FOR WEARING BIPAP/CPAP MACHINE PROVIDED BY HOSPITAL, PT VERBALIZES UNDERSTANDING BUT REFUSED REGARDLESS. RRR AND UNLABORED, O2 AT 2L VIA NC, VSS, NO COMPLAINTS OF PAIN, IV ABX ADMINISTERED (REFER TO JUN). ABLE TO AMBULATE WELL TO BATHROOM WITH FWW AND SBA, NO CONCERNS AT THIS TIME.
[2024-07-28 05:17] LABS: Bun/Creatinine Ratio 26.3 (12.0-20.0); Calcium, Blood 7.8 mg/dL (8.5-10.1); Creatinine, Blood 0.46 mg/dL (0.40-1.00); Potassium, Blood 4.1 mmol/L (3.5-5.5)
[2024-07-28 06:09] VITALS: BP 114/71
[2024-07-28 08:27] VITALS: BP 139/67
[2024-07-28 10:56] VITALS: BP 138/67
[2024-07-28] MEDS ORDERED: dilTIAZem HCL 120 MG CAP.CD PO SCH (11:00)
[2024-07-28 14:59] VITALS: BP 117/69
[2024-07-28] MEDS ORDERED: Nitroglycerin 0.4 MG SUBL SL PRN (18:05)
--- NOTE | 2024-07-28 18:09 | NUR ---
PT A&OX4 WITH FREQUENT DROWSINESS. PT RESPONDS TO VERBAL STIMULI. VSS ON 2L NC MAINTAINING >92%. PT REPORTS FEELING ANXIOUS AND DENIES SOB. MEDICATED PER EMAR FOR ANXIETY. PT PLEUREX DRAINED 550ML SEROSANGIOUS FLUID. PT TOLERATED WELL WITH OCCASIONAL COUGHING. DRAINING STOPPED WHEN PT C/O OF CRAMPING IN RIGHT SIDE OF BACK. MEDICATED PER EMAR FOR PAIN PRN. XRAY COMPLETED AND DR. COY NOTIFIED. PT AMBULATED TO BATHROOM WITH SBA. BED IS LOW AND LOCKED AND CALLS APPROPRIATELY.
[2024-07-28 20:09] VITALS: BP 116/51
[2024-07-28 23:44] VITALS: BP 113/55; BP 98/61
[2024-07-29 04:03] VITALS: BP 102/57
--- NOTE | 2024-07-29 04:20 | NUR ---
PT'S VSS, UTILIZED HOME CPAP FOR PART OF SHIFT AND THEN SWITCHED TO 2L O2 VIA NC. PT STATES SHE FEELS "A LOT BETTER." PT ABLE TO AMBULATE TO BATHROOM WITH SBA AND FWW, SLEPT WELL. DENIES PAIN, SISTER (VISHAL) VISITED AND LEFT WHEN VISITING HOURS ENDED. BP AND VSS, RRR AND UNLABORED, PLEUREX SITE WDL, NO CONCERNS AT THIS TIME. PLEASANT PATIENT OVERALL. IV ABX ADMINISTERED PER MD ORDER, NO ADVERSE EFFECTS NOTED.
[2024-07-29 04:48] LABS: Hematocrit 27.7 % (33.0-51.0); Hemoglobin 8.2 g/dL (11.5-16.0); Mean Corpuscular HGB 24.5 pg (26.0-34.0); Mean Corpuscular HGB Conc 29.6 g/dL (31.5-36.5); Mean Corpuscular Volume 83 fL (80-100); Mean Platelet Volume 8.1 fL (9.1-12.4); Platelet Count 582 K/mm3 (150-400); RDW Coefficient Variation 14.9 % (11.7-14.2); Red Blood Cell Count 3.35 M/mm3 (3.80-5.20); White Blood Cell Count 8.31 K/mm3 (4.00-11.30)
[2024-07-29 05:13] LABS: Bun/Creatinine Ratio 21.1 (12.0-20.0); Calcium, Blood 7.9 mg/dL (8.5-10.1); Creatinine, Blood 0.62 mg/dL (0.40-1.00); Potassium, Blood 3.9 mmol/L (3.5-5.5)
[2024-07-29 06:32] LABS: Base Excess Venous 10.8 mmol/L; Bicarbonate Venous 33.2 mmol/L (24.0-30.0)
[2024-07-29 08:14] VITALS: BP 115/56
[2024-07-29] MEDS ORDERED: Cyanocobalamin 500 MCG Tab PO SCH (09:00)
[2024-07-29] MEDS ORDERED: Calcium Citrate 315 MG/Vitamin D 250 IU Tab PO SCH (09:00)
[2024-07-29] MEDS ORDERED: Docosahexanoic Acid/EPA 1,000 MG CAP PO SCH (09:00)
[2024-07-29] MEDS ORDERED: Zinc Sulfate 220 MG Cap (Provides 50MG) PO SCH (09:00)
[2024-07-29] MEDS ORDERED: Docusate Sodium 250 MG Cap PO SCH (09:00)
[2024-07-29] MEDS ORDERED: Multivitamins 1 Tab PO SCH (09:00)
[2024-07-29] MEDS ORDERED: Lactobacil 2-S.Thermo-Bifido 1 1 Cap PO SCH (10:00)
[2024-07-29 11:36] VITALS: BP 121/50
[2024-07-29 13:10] LABS: Percent Saturation 11.8 % (15.0-50.0)
[2024-07-29 13:19] LABS: Automated BF RBC Count 0.036 M/mm3 (0-0); Automated BF WBC Count 0.639 K/mm3 (0-999)
[2024-07-29 13:23] LABS: Body Fluid WBC Count 639 /mm3 (0-999); RBC Count, Body Fluid 36000 /mm3 (0-0)
[2024-07-29 13:37] LABS: Glucose, Body Fluid 14 mg/dL; Lactate Dehydrogenase, Body Fl 864 U/L; Protein, Body Fluid 2.8 g/dL
[2024-07-29] MEDS ORDERED: DILT120 PO (15:35)
[2024-07-29] MEDS ORDERED: PROBIOTIC1 EA13 PO (15:36)
[2024-07-29] MEDS ORDERED: AMOCLA875 PO (15:37)
--- NOTE | 2024-07-29 16:58 | NUR ---
SHIFT SUMMARY/DISCHARGE; PATIENT HAS BEEN A/O X4, COOPERATIVE WITH CARE, VSS, NSR ON THE MONITOR, NO COMPLAINTS OF CHEST PAIN OR PRESSURE. PLEURX DRAINED PER PROVIDER ORDER WITH 400CC OF FLUID REMOVED, 20CC SAMPLE TAKEN TO THE LAB FOR TESTING. HOME 02 EVAL COMPLETED, QUALIFIED FOR 2L VIA NC, O2 CONDENSER DELIVERED TO BEDSIDE, PATIENT DEMONSTRATED UNDERSTANDING USING TEACHBACK. IV D/C'D, SITE WNL, GAUZE AND COBAN APPLIED, PATIENT ENDORSED UNDERSTANGING TO REMOVE IN 1 HOUR. IT APPLICATION ADMINISTRATOR ASSISTED PATIENT OUT WITH A WHEELCHAIR WHERE HER RIDE WAS WAITING (SISTER).
[2024-07-29 17:03] LABS: Color, Body Fluid Amber (None-Yellow); Total Cell Count, Body Fluid 100
[2024-07-29 17:04] LABS: Appearance, Body Fluid Cloudy (Clear)
--- NOTE | 2024-07-29 18:48 | NUR ---
PALLIATIVE CARE VISIT: 1415 MET WITH PT IN HER ROOM. PT IS MUCH MORE ALERT TODAY THAN MONDAY AND ABLE TO HAVE MEANINGFUL CONVERSATION. KAILEY REPORTS SHE IS FEELING MUCH BETTER AND STRONGER. PT HAS TO GET UP TO USE BATHROOM AND IS ABLE TO AMBULATE WITH WALKER WITH STANDBY ASSISTANCE. PT REPORTS PAIN AND SOB IS MANAGED AT THIS TIME. PT REPORTS CONCERNS WITH SYMPTOM MANAGEMENT AT HOME. DISCUSS OPTION FOR PALLIATIVE CARE SERVICES OUTPATIENT. EDUCATED PT ON SERVICES THEY PROVIDE. PT IS AGREEABLE TO REFERRAL. SENT REFERRAL TO [facility]. GAVE PT [facility] BROCHURE.
== END 2024-07-29 17:06 | disposition home health service (06) | DRG 308 ==
LOC: ER 18:11 → ERHOLD 18:12 → ER 18:12 → ERHOLD 18:12 → PCU 07-24 13:30
PROVIDERS: Emergency Medicine; Internal Medicine; Internal Medicine Critical Care Medicine; Student in an Organized Health Care Education/Training Program; ADMIT Internal Medicine
PROC: 5A2204Z Restoration of Cardiac Rhythm, Single (ICD-10-PCS; principal; 2024-07-24)
PROC: 5A09357 Assistance with Respiratory Ventilation, Less than 24 Consecutive Hours, Continuous Positive Airway Pressure (ICD-10-PCS; 2024-07-24)
PROC: 30233J1 Transfusion of Nonautologous Serum Albumin into Peripheral Vein, Percutaneous Approach (ICD-10-PCS; 2024-07-24)
PROC: 4A033R1 Measurement of Arterial Saturation, Peripheral, Percutaneous Approach (ICD-10-PCS; 2024-07-27)
DX: I47.19 Other supraventricular tachycardia (principal); G92.8 Other toxic encephalopathy; J96.01 Acute respiratory failure with hypoxia; E87.1 Hypo-osmolality and hyponatremia; J91.0 Malignant pleural effusion; C77.0 Secondary and unspecified malignant neoplasm of lymph nodes of head, face and neck; C79.51 Secondary malignant neoplasm of bone; C79.72 Secondary malignant neoplasm of left adrenal gland; J98.11 Atelectasis; C78.01 Secondary malignant neoplasm of right lung; G47.33 Obstructive sleep apnea (adult) (pediatric); D63.0 Anemia in neoplastic disease; Z86.711 Personal history of pulmonary embolism; Z79.01 Long term (current) use of anticoagulants; B95.61 Methicillin susceptible Staphylococcus aureus infection as the cause of diseases classified elsewhere; K21.9 Gastro-esophageal reflux disease without esophagitis; Z90.721 Acquired absence of ovaries, unilateral; Z90.89 Acquired absence of other organs; Z98.890 Other specified postprocedural states; Z90.49 Acquired absence of other specified parts of digestive tract; F43.20 Adjustment disorder, unspecified; Z88.5 Allergy status to narcotic agent; Z88.8 Allergy status to other drugs, medicaments and biological substances; Z79.82 Long term (current) use of aspirin; Z79.899 Other long term (current) drug therapy; T42.6X5A Adverse effect of other antiepileptic and sedative-hypnotic drugs, initial encounter
CPT/HCPCS: 36415; 36600; 71045; 71260; 80048; 80053; 82728; 82803; 82945; 83540; 83550; 83615; 83735; 83880; 84157; 84443; 84484; 85025; 85027; 87070; 87075; 87077; 87147; 87186; 89051; 93005; 93010; 94660; 94761; 94762; 96365; 96366; 96368; 96375; 96376; 97161; 97530; 99291-25; A6590; A9270; G0378; J0153; J2270; J2543; J3010; J7030; J7050; P9047; Q9967

== ENCOUNTER 2024-08-28 02:53 | Day surgery (SDC) | payer MEDICARE ==
[2024-08-28] VITALS (7 sets, daily range): BP systolic 113–130; BP diastolic 55–63
[~2024-08-28 02:53] MED LIST changes: +AMOCLA875 PO; +BENZONATATE100 MG PO; +DILT120 PO; +DOC250 PO; +MORPHINE SU PO; +PROBIOTIC1 EA13 PO
[2024-08-28] MEDS ORDERED: NS 250 ML IV SCH (06:35)
[2024-08-28 19:31] LABS: Bun/Creatinine Ratio 41.3 (12.0-20.0); Calcium, Blood 8.6 mg/dL (8.5-10.1); Creatinine, Blood 0.51 mg/dL (0.40-1.00); Potassium, Blood 4.4 mmol/L (3.5-5.5)
[2024-09-02] MEDS ORDERED: PROBIOTIC1 EA14 PO (09:55)
[2024-09-02] MEDS ORDERED: CEPH500 PO (09:58)
== END 2024-08-28 18:45 | disposition home or self-care (01) ==
LOC: ATC 02:53
PROVIDERS: Surgery
DX: C34.11 Malignant neoplasm of upper lobe, right bronchus or lung (principal); C77.1 Secondary and unspecified malignant neoplasm of intrathoracic lymph nodes; C79.72 Secondary malignant neoplasm of left adrenal gland; K21.9 Gastro-esophageal reflux disease without esophagitis; Z79.899 Other long term (current) drug therapy; Z88.5 Allergy status to narcotic agent
CPT/HCPCS: 36430; 80048; 86850; 86900; 86901; 86923; J7050; P9016

== ENCOUNTER → 2024-08-29 | Outpatient (CLI) | payer MEDICARE ==
[~2024-08-29] MED LIST changes: +ALPR.5 PO; +CEPH500 PO; +PROBIOTIC1 EA14 PO
== END ==
LOC: LAB 14:40 → LAB SHORT 14:40
DX: C34.91 Malignant neoplasm of unspecified part of right bronchus or lung (principal)
CPT/HCPCS: 87070; 87205